=== PATIENT | female | born 1935 | race Caucasian/White ===

== ENCOUNTER 2019-10-31 15:55 | Inpatient (IN) ==
[2019-10-31 17:15] LABS: Basophils # 0.1 10*3/uL (0.0-0.2); Basophils % 0.6 % (0.0-0.8); Eosinophils # 0.4 10*3/uL (0.0-0.87); Eosinophils % 2.9 % (0.00-10.9); Hematocrit 38.9 VOL% (35.7-47.0); Immature Granulocytes % 0.4 %; Immature Granulocytes Absolute 0.05 #; Lymphocytes # 4.4 10*3/uL (1.4-4.0); Lymphocytes % 35.6 % (21.3-54.2); Mean Corpuscular HGB Conc 30.8 GM/DL (32-36); Mean Corpuscular Volume 113.1 FL (87-102); Mean Platelet Volume 9.5 FL (9.6-12.0); Monocytes % 8.1 % (1.7-12.7); NRBC # 0.09 10*3/uL; Neutrophils % 52.4 % (38.7-73.9); Platelet Count 388 T/CUMM (130-400); Red Blood Count 3.44 MC/CUMM (3.8-5.5); Red Cell Distribution Width 14.9 % (9.3-17.3); White Blood Count 12.5 T/CUMM (4-12)
[2019-10-31 17:23] LABS: Apearance,Urine CLOUDY (Clear); Bilirubin,Urine Negative (Negative); Blood, Urine Negative (Negative); Glucose,Urine (UA) Negative (Negative); Hyaline Casts,Urine 1 /LPF (0-3); Ketones,Urine Negative (Negative); Nitrite,Urine Negative (Negative); Protein,Urine Negative; RBC,Urine 1 /HPF (0-4); Squamous Epithelial Cell,Urine Occasional /HPF (0-10); Urine Color Straw (Yellow); Urine Specific Gravity 1.009 (1.001-1.035); Urine Urobilinogen < 2.0 EU/DL (0.2-1.0); WBC,Urine 8 /HPF (0-6)
[2019-10-31 17:35] LABS: Alanine Aminotransferase 32 U/L (13-56); Albumin 4.4 G/DL (3.4-5.0); Alkaline Phosphatase 108 U/L (45-117); Aspartate Amino Transferase 27 U/L (0-37); Bilirubin,Total < 0.39 MG/DL (0.2-1.0); Blood Urea Nitrogen 65 MG/DL (7-18); Calcium 9.5 MG/DL (8.5-10.1); Estimated Glom Filtration Rate 25 ML/MIN; Glucose 117 MG/DL (74-106); Osmolality,Calculated 287.2 MOS/KG (273-304); Total Protein 9.4 G/DL (6.4-8.3)
[2019-10-31] MEDS ORDERED: SODIUM CHLORIDE 0.9% 1,000 ML IV STA (17:37)
[2019-10-31 18:52] LABS: Anisocytosis 2+; Macrocytosis 2+; Polychromasia 1+
[2019-10-31 18:53] LABS: Poikilocytosis Few; Schistocytes Few
[2019-10-31 18:54] LABS: Platelet Estimate Normal
[2019-10-31] MEDS ORDERED: INSULIN REGULAR 100 UNIT/ML IV ONE (18:57)
[2019-10-31] MEDS ORDERED: DEXTROSE 50% 25 GM/50 ML VIAL IV ONE (18:58)
[2019-10-31] MEDS ORDERED: CALCIUM GLUCONATE 1,000 MG in SODIUM CHLORIDE 0.9% 100 ML IV ONE (18:59)
[2019-10-31] MEDS ORDERED: SODIUM BICARBONATE 10 MEQ/10 ML SYRINGE IV ONE (18:59)
[2019-10-31] MEDS ORDERED: SODIUM POLYSTYRENE SULFATE 15 GM/60 ML BOTTLE PO STA (19:00)
[2019-10-31 19:17] LABS: Troponin I < 0.015 NG/ML (0.00-0.045)
[2019-10-31 19:23] LABS: Thyroid Stimulating Hormone 1.67 uIU/ml (0.358-3.74)
[2019-10-31] MEDS ORDERED: hydrALAZINE 20 MG/1 ML VIAL IV PRN (19:31)
[2019-10-31] MEDS ORDERED: CALCIUM GLUCONATE 1,000 MG/10 ML VIAL IV ONE (19:34)
[2019-10-31] MEDS ORDERED: DEXTROSE 50% 25 GM/50 ML SYRINGE IV ONE (19:34)
[2019-11-01] MEDS: LEVOFLOXACIN INJ 250 MG in PREMIX 1 EACH IV SCH ×2 (00:01→21:27)
[2019-11-01] MEDS: SODIUM CHLORIDE 0.9% 1,000 ML IV SCH ×3 (00:01→16:16)
[2019-11-01] MEDS: ENOXAPARIN 30 MG/0.3 ML SYRINGE SUBCUT SCH ×2 (00:02→21:27)
[2019-11-01] MEDS: carvediloL 6.25 MG TABLET PO SCH ×3 (00:02→21:27)
[2019-11-01 06:00] LABS: Basophils # 0.1 10*3/uL (0.0-0.2); Basophils % 0.7 % (0.0-0.8); Eosinophils # 0.4 10*3/uL (0.0-0.87); Hematocrit 36.2 VOL% (35.7-47.0); Hemoglobin 11.3 GM/DL (12.0-16.0); Immature Granulocytes % 0.4 %; Immature Granulocytes Absolute 0.05 #; Lymphocytes # 5.6 10*3/uL (1.4-4.0); Lymphocytes % 40.3 % (21.3-54.2); Mean Corpuscular HGB Conc 31.2 GM/DL (32-36); Mean Corpuscular Volume 111.7 FL (87-102); Mean Platelet Volume 9.7 FL (9.6-12.0); Monocytes % 9.7 % (1.7-12.7); NRBC # 0.06 10*3/uL; Neutrophils % 45.9 % (38.7-73.9); Platelet Count 381 T/CUMM (130-400); Red Blood Count 3.24 MC/CUMM (3.8-5.5); Red Cell Distribution Width 14.7 % (9.3-17.3); White Blood Count 13.8 T/CUMM (4-12)
[2019-11-01 06:19] LABS: Troponin I < 0.015 NG/ML (0.00-0.045)
[2019-11-01 06:21] LABS: Hypochromasia 1+; Ovalocytes Slight; Platelet Estimate Adequate
[2019-11-01 06:25] LABS: Alanine Aminotransferase 26 U/L (13-56); Albumin 3.7 G/DL (3.4-5.0); Alkaline Phosphatase 107 U/L (45-117); Aspartate Amino Transferase 34 U/L (0-37); Bilirubin,Total < 0.39 MG/DL (0.2-1.0); Blood Urea Nitrogen 54 MG/DL (7-18); Calcium 9.5 MG/DL (8.5-10.1); Estimated Glom Filtration Rate 36 ML/MIN; Glucose 117 MG/DL (74-106); HDL Cholesterol 41 MG/DL (40-60); Osmolality,Calculated 288.8 MOS/KG (273-304); Risk Ratio 7.49; Total Protein 7.9 G/DL (6.4-8.3); Triglycerides 626 MG/DL (2-150); VLDL CHOLESTEROL 125.2 MG/DL
[2019-11-01] MEDS ORDERED: SODIUM POLYSTYRENE SULFATE 15 GM/60 ML BOTTLE PO STA (07:40)
[2019-11-01] MEDS: ASPIRIN EC 81 MG TABLET PO SCH (09:22)
[2019-11-01] MEDS ORDERED: SODIUM POLYSTYRENE SULFATE 15 GM/60 ML BOTTLE PO PRN (15:44)
[2019-11-01] MEDS: LACTOBACILLUS RHAMNOSUS GG CAPSULE PO SCH (21:26)
[2019-11-01] MEDS: WHEAT DEXTRIN POWDER 244 GM BOTTLE PO SCH (21:28)
[2019-11-01] MEDS: SIMVASTATIN 10 MG TABLET PO SCH (21:28)
[2019-11-01] MEDS ORDERED: ALBUTEROL 2.5 MG/3 ML NEB RESP TX PRN (22:55)
[2019-11-02] MEDS: SODIUM CHLORIDE 0.9% 1,000 ML IV SCH ×2 (05:37→13:00)
[2019-11-02] MEDS: FLUTICASONE 50 MCG NASAL SPRAY 16 GM BOTTLE BOTH NARES SCH ×3 (05:49→21:04)
[2019-11-02 08:15] LABS: Basophils # 0.1 10*3/uL (0.0-0.2); Basophils % 0.5 % (0.0-0.8); Eosinophils # 0.4 10*3/uL (0.0-0.87); Eosinophils % 2.9 % (0.00-10.9); Hematocrit 35.5 VOL% (35.7-47.0); Immature Granulocytes % 0.4 %; Immature Granulocytes Absolute 0.05 #; Lymphocytes # 5.5 10*3/uL (1.4-4.0); Lymphocytes % 40.6 % (21.3-54.2); Mean Corpuscular Volume 113.4 FL (87-102); Mean Platelet Volume 9.3 FL (9.6-12.0); Monocytes % 10.6 % (1.7-12.7); NRBC # 0.04 10*3/uL; Platelet Count 367 T/CUMM (130-400); Red Blood Count 3.13 MC/CUMM (3.8-5.5); Red Cell Distribution Width 14.9 % (9.3-17.3); White Blood Count 13.6 T/CUMM (4-12)
[2019-11-02 08:35] LABS: Platelet Estimate Normal
[2019-11-02 08:36] LABS: Anisocytosis Slight; Macrocytosis 1+; Poikilocytosis Slight
[2019-11-02 08:39] LABS: Alanine Aminotransferase 27 U/L (13-56); Albumin 3.3 G/DL (3.4-5.0); Alkaline Phosphatase 106 U/L (45-117); Aspartate Amino Transferase 23 U/L (0-37); Bilirubin,Total < 0.39 MG/DL (0.2-1.0); Blood Urea Nitrogen 33 MG/DL (7-18); Estimated Glom Filtration Rate 40 ML/MIN; Glucose 111 MG/DL (74-106); Osmolality,Calculated 282.7 MOS/KG (273-304); Total Protein 7.9 G/DL (6.4-8.3)
[2019-11-02] MEDS: carvediloL 6.25 MG TABLET PO SCH ×2 (09:25→21:00)
[2019-11-02] MEDS: ASPIRIN EC 81 MG TABLET PO SCH (09:25)
[2019-11-02] MEDS: LACTOBACILLUS RHAMNOSUS GG CAPSULE PO SCH ×2 (09:25→21:03)
[2019-11-02] MEDS: WHEAT DEXTRIN POWDER 244 GM BOTTLE PO SCH ×3 (09:27→21:02)
[2019-11-02 10:19] LABS: Folate 16.3 NG/ML (5.4-24.0)
[2019-11-02] MEDS: SIMVASTATIN 10 MG TABLET PO SCH (21:03)
[2019-11-02] MEDS: LEVOFLOXACIN INJ 250 MG in PREMIX 1 EACH IV SCH (21:05)
[2019-11-02] MEDS: ENOXAPARIN 30 MG/0.3 ML SYRINGE SUBCUT SCH (21:11)
[2019-11-03] MEDS: VANCOMYCIN 50 MG/ML 60 ML/BOTTLE PO SCH ×4 (00:39→18:04)
[2019-11-03 06:20] LABS: Basophils # 0.1 10*3/uL (0.0-0.2); Basophils % 0.5 % (0.0-0.8); Eosinophils # 0.4 10*3/uL (0.0-0.87); Eosinophils % 3.2 % (0.00-10.9); Hematocrit 31.1 VOL% (35.7-47.0); Hemoglobin 9.8 GM/DL (12.0-16.0); Immature Granulocytes % 0.3 %; Immature Granulocytes Absolute 0.04 #; Lymphocytes # 4.9 10*3/uL (1.4-4.0); Lymphocytes % 39.9 % (21.3-54.2); Mean Corpuscular HGB Conc 31.5 GM/DL (32-36); Mean Corpuscular Volume 111.9 FL (87-102); Mean Platelet Volume 9.8 FL (9.6-12.0); Monocytes % 11.9 % (1.7-12.7); NRBC # 0.04 10*3/uL; Neutrophils % 44.2 % (38.7-73.9); Platelet Count 326 T/CUMM (130-400); Red Blood Count 2.78 MC/CUMM (3.8-5.5); Red Cell Distribution Width 14.4 % (9.3-17.3); White Blood Count 12.2 T/CUMM (4-12)
[2019-11-03 06:43] LABS: Albumin 3.1 G/DL (3.4-5.0); Bilirubin,Total 0.6 MG/DL (0.2-1.0); Calcium 8.7 MG/DL (8.5-10.1); Osmolality,Calculated 280.5 MOS/KG (273-304)
[2019-11-03] MEDS: ASPIRIN EC 81 MG TABLET PO SCH (11:02)
[2019-11-03] MEDS: carvediloL 6.25 MG TABLET PO SCH ×2 (11:03→20:37)
[2019-11-03] MEDS: WHEAT DEXTRIN POWDER 244 GM BOTTLE PO SCH ×3 (11:03→20:37)
[2019-11-03] MEDS: TORSEMIDE 20 MG TABLET PO SCH (11:04)
[2019-11-03] MEDS: LACTOBACILLUS RHAMNOSUS GG CAPSULE PO SCH ×2 (11:04→20:37)
[2019-11-03] MEDS: FLUTICASONE 50 MCG NASAL SPRAY 16 GM BOTTLE BOTH NARES SCH ×2 (11:05→20:38)
[2019-11-03] MEDS: SIMVASTATIN 10 MG TABLET PO SCH (20:38)
[2019-11-03] MEDS: ENOXAPARIN 30 MG/0.3 ML SYRINGE SUBCUT SCH (20:38)
[2019-11-04] MEDS: VANCOMYCIN 50 MG/ML 60 ML/BOTTLE PO SCH ×4 (00:30→17:34)
[2019-11-04 06:24] LABS: Basophils # 0.1 10*3/uL (0.0-0.2); Basophils % 0.6 % (0.0-0.8); Eosinophils # 0.4 10*3/uL (0.0-0.87); Eosinophils % 3.7 % (0.00-10.9); Hematocrit 30.3 VOL% (35.7-47.0); Hemoglobin 9.8 GM/DL (12.0-16.0); Immature Granulocytes % 0.3 %; Immature Granulocytes Absolute 0.03 #; Lymphocytes # 5.3 10*3/uL (1.4-4.0); Lymphocytes % 47.2 % (21.3-54.2); Mean Corpuscular HGB Conc 32.3 GM/DL (32-36); NRBC # 0.05 10*3/uL; Neutrophils % 35.2 % (38.7-73.9); Platelet Count 338 T/CUMM (130-400); Red Blood Count 2.78 MC/CUMM (3.8-5.5); Red Cell Distribution Width 14.6 % (9.3-17.3); White Blood Count 11.2 T/CUMM (4-12)
[2019-11-04 06:49] LABS: Eosinophils 4 % (0-10); Hypochromasia 1+; Lymphocytes 45 % (20-55); Nucleated Red Blood Cells 1 (0-5); Platelet Estimate Adequate; Segmented Neutrophils 41 % (50-85); Total Cells Counted 100
[2019-11-04 07:04] LABS: Albumin 3.2 G/DL (3.4-5.0); Bilirubin,Total 0.4 MG/DL (0.2-1.0); Calcium 8.6 MG/DL (8.5-10.1); Osmolality,Calculated 281.5 MOS/KG (273-304)
[2019-11-04] MEDS: LACTOBACILLUS RHAMNOSUS GG CAPSULE PO SCH ×2 (10:54→21:59)
[2019-11-04] MEDS: TORSEMIDE 20 MG TABLET PO SCH (10:54)
[2019-11-04] MEDS: ASPIRIN EC 81 MG TABLET PO SCH (10:54)
[2019-11-04] MEDS: carvediloL 6.25 MG TABLET PO SCH ×2 (10:54→21:59)
[2019-11-04] MEDS: WHEAT DEXTRIN POWDER 244 GM BOTTLE PO SCH ×3 (10:54→21:59)
[2019-11-04] MEDS: FLUTICASONE 50 MCG NASAL SPRAY 16 GM BOTTLE BOTH NARES SCH (10:55)
[2019-11-04] MEDS: ENOXAPARIN 30 MG/0.3 ML SYRINGE SUBCUT SCH (21:59)
[2019-11-04] MEDS: SIMVASTATIN 10 MG TABLET PO SCH (21:59)
[2019-11-05] MEDS: FLUTICASONE 50 MCG NASAL SPRAY 16 GM BOTTLE BOTH NARES SCH ×3 (00:06→20:57)
[2019-11-05] MEDS: VANCOMYCIN 50 MG/ML 60 ML/BOTTLE PO SCH ×4 (00:06→18:29)
[2019-11-05] MEDS: LACTATED RINGERS 1,000 ML IV SCH ×2 (03:17→06:15)
[2019-11-05 06:35] LABS: Basophils # 0.1 10*3/uL (0.0-0.2); Basophils % 0.5 % (0.0-0.8); Eosinophils # 0.4 10*3/uL (0.0-0.87); Eosinophils % 2.9 % (0.00-10.9); Hematocrit 30.9 VOL% (35.7-47.0); Hemoglobin 10.1 GM/DL (12.0-16.0); Immature Granulocytes % 0.3 %; Immature Granulocytes Absolute 0.05 #; Lymphocytes # 5.6 10*3/uL (1.4-4.0); Lymphocytes % 37.4 % (21.3-54.2); Mean Corpuscular HGB Conc 32.7 GM/DL (32-36); Mean Corpuscular Volume 108.8 FL (87-102); Mean Platelet Volume 9.6 FL (9.6-12.0); Monocytes % 11.9 % (1.7-12.7); NRBC # 0.02 10*3/uL; Platelet Count 333 T/CUMM (130-400); Red Blood Count 2.84 MC/CUMM (3.8-5.5); Red Cell Distribution Width 14.6 % (9.3-17.3)
[2019-11-05 06:58] LABS: Alanine Aminotransferase 20 U/L (13-56); Albumin 3.1 G/DL (3.4-5.0); Alkaline Phosphatase 82 U/L (45-117); Aspartate Amino Transferase 18 U/L (0-37); Bilirubin,Total < 0.39 MG/DL (0.2-1.0); Blood Urea Nitrogen 32 MG/DL (7-18); Calcium 8.6 MG/DL (8.5-10.1); Estimated Glom Filtration Rate 32 ML/MIN; Glucose 106 MG/DL (74-106); Osmolality,Calculated 283.5 MOS/KG (273-304); Total Protein 7.1 G/DL (6.4-8.3)
[2019-11-05] MEDS: LACTOBACILLUS RHAMNOSUS GG CAPSULE PO SCH ×2 (10:48→20:56)
[2019-11-05] MEDS: ASPIRIN EC 81 MG TABLET PO SCH (10:48)
[2019-11-05] MEDS: carvediloL 6.25 MG TABLET PO SCH ×2 (10:49→20:56)
[2019-11-05] MEDS: TORSEMIDE 20 MG TABLET PO SCH (10:49)
[2019-11-05] MEDS: allopurinoL 300 MG TABLET PO SCH (10:50)
[2019-11-05] MEDS: OLMESARTAN 20 MG TABLET PO SCH (10:50)
[2019-11-05] MEDS: WHEAT DEXTRIN POWDER 244 GM BOTTLE PO SCH ×3 (10:51→22:54)
[2019-11-05] MEDS ORDERED: SODIUM CHLORIDE 0.9% 1,000 ML IV SCH (15:30)
[2019-11-05] MEDS: SIMVASTATIN 10 MG TABLET PO SCH (20:56)
[2019-11-05] MEDS: ENOXAPARIN 30 MG/0.3 ML SYRINGE SUBCUT SCH (20:56)
[2019-11-06] MEDS: VANCOMYCIN 50 MG/ML 60 ML/BOTTLE PO SCH ×3 (00:05→12:19)
[2019-11-06 05:29] LABS: Basophils # 0.1 10*3/uL (0.0-0.2); Basophils % 0.4 % (0.0-0.8); Eosinophils # 0.4 10*3/uL (0.0-0.87); Hematocrit 29.9 VOL% (35.7-47.0); Hemoglobin 9.5 GM/DL (12.0-16.0); Immature Granulocytes % 0.4 %; Immature Granulocytes Absolute 0.05 #; Lymphocytes # 5.2 10*3/uL (1.4-4.0); Lymphocytes % 37.9 % (21.3-54.2); Mean Corpuscular HGB Conc 31.8 GM/DL (32-36); Mean Corpuscular Volume 109.9 FL (87-102); Mean Platelet Volume 9.8 FL (9.6-12.0); Monocytes % 12.4 % (1.7-12.7); NRBC # 0.02 10*3/uL; Neutrophils % 45.9 % (38.7-73.9); Platelet Count 354 T/CUMM (130-400); Red Blood Count 2.72 MC/CUMM (3.8-5.5); Red Cell Distribution Width 14.5 % (9.3-17.3); White Blood Count 13.7 T/CUMM (4-12)
[2019-11-06] MEDS: LACTOBACILLUS RHAMNOSUS GG CAPSULE PO SCH ×2 (08:37→21:49)
[2019-11-06] MEDS: carvediloL 6.25 MG TABLET PO SCH ×2 (08:38→21:49)
[2019-11-06] MEDS: ASPIRIN EC 81 MG TABLET PO SCH (08:38)
[2019-11-06] MEDS: allopurinoL 300 MG TABLET PO SCH (08:38)
[2019-11-06] MEDS: FLUTICASONE 50 MCG NASAL SPRAY 16 GM BOTTLE BOTH NARES SCH ×2 (08:38→21:50)
[2019-11-06] MEDS: WHEAT DEXTRIN POWDER 244 GM BOTTLE PO SCH ×4 (08:39→21:53)
[2019-11-06 10:13] LABS: Apearance,Urine CLEAR (Clear); Bilirubin,Urine Negative (Negative); Blood, Urine Negative (Negative); Glucose,Urine (UA) Negative (Negative); Ketones,Urine Negative (Negative); Nitrite,Urine Negative (Negative); Protein,Urine Negative; RBC,Urine <1 /HPF (0-4); Squamous Epithelial Cell,Urine Occasional /HPF (0-10); Urine Color Straw (Yellow); Urine Specific Gravity 1.008 (1.001-1.035); Urine Urobilinogen < 2.0 EU/DL (0.2-1.0); WBC,Urine 2 /HPF (0-6)
[2019-11-06 12:31] LABS: Calcium 8.7 MG/DL (8.5-10.1); Osmolality,Calculated 285.5 MOS/KG (273-304)
[2019-11-06] MEDS: ENOXAPARIN 30 MG/0.3 ML SYRINGE SUBCUT SCH (21:49)
[2019-11-06] MEDS: SIMVASTATIN 10 MG TABLET PO SCH (21:49)
[2019-11-07] MEDS: VANCOMYCIN 50 MG/ML 60 ML/BOTTLE PO SCH ×5 (00:01→18:10)
[2019-11-07 06:48] LABS: Basophils # 0.1 10*3/uL (0.0-0.2); Basophils % 0.4 % (0.0-0.8); Eosinophils # 0.5 10*3/uL (0.0-0.87); Eosinophils % 3.2 % (0.00-10.9); Hematocrit 30.7 VOL% (35.7-47.0); Hemoglobin 9.5 GM/DL (12.0-16.0); Immature Granulocytes % 0.4 %; Immature Granulocytes Absolute 0.06 #; Lymphocytes # 5.1 10*3/uL (1.4-4.0); Mean Corpuscular HGB Conc 30.9 GM/DL (32-36); Mean Corpuscular Volume 112.5 FL (87-102); Monocytes % 12.8 % (1.7-12.7); NRBC # 0.03 10*3/uL; Neutrophils % 46.2 % (38.7-73.9); Platelet Count 355 T/CUMM (130-400); Red Blood Count 2.73 MC/CUMM (3.8-5.5); Red Cell Distribution Width 14.9 % (9.3-17.3); White Blood Count 13.9 T/CUMM (4-12)
[2019-11-07 07:12] LABS: Anisocytosis 1+; Platelet Estimate Normal
[2019-11-07 07:13] LABS: Macrocytosis Slight
[2019-11-07 08:28] LABS: Calcium 8.7 MG/DL (8.5-10.1); Osmolality,Calculated 284.5 MOS/KG (273-304)
[2019-11-07] MEDS: OLMESARTAN 20 MG TABLET PO SCH (09:27)
[2019-11-07] MEDS: allopurinoL 300 MG TABLET PO SCH (09:28)
[2019-11-07] MEDS: FLUTICASONE 50 MCG NASAL SPRAY 16 GM BOTTLE BOTH NARES SCH ×2 (09:28→21:27)
[2019-11-07] MEDS: LACTOBACILLUS RHAMNOSUS GG CAPSULE PO SCH ×2 (09:28→21:26)
[2019-11-07] MEDS: carvediloL 6.25 MG TABLET PO SCH ×2 (09:28→21:26)
[2019-11-07] MEDS: ASPIRIN EC 81 MG TABLET PO SCH (09:28)
[2019-11-07] MEDS: WHEAT DEXTRIN POWDER 244 GM BOTTLE PO SCH ×3 (09:29→21:56)
[2019-11-07] MEDS ORDERED: TUBERCULIN SKIN TEST 0.1 ML SYRINGE INTRADERM ONE (11:20)
[2019-11-07] MEDS: ENOXAPARIN 30 MG/0.3 ML SYRINGE SUBCUT SCH (21:26)
[2019-11-07] MEDS: SIMVASTATIN 10 MG TABLET PO SCH (21:28)
[2019-11-08] MEDS: VANCOMYCIN 50 MG/ML 60 ML/BOTTLE PO SCH ×2 (00:03→05:48)
[2019-11-08 06:07] LABS: Basophils # 0.1 10*3/uL (0.0-0.2); Basophils % 0.4 % (0.0-0.8); Eosinophils # 0.4 10*3/uL (0.0-0.87); Eosinophils % 2.6 % (0.00-10.9); Hematocrit 28.7 VOL% (35.7-47.0); Hemoglobin 9.3 GM/DL (12.0-16.0); Immature Granulocytes % 0.4 %; Immature Granulocytes Absolute 0.05 #; Lymphocytes # 4.5 10*3/uL (1.4-4.0); Lymphocytes % 33.2 % (21.3-54.2); Mean Corpuscular HGB Conc 32.4 GM/DL (32-36); Mean Corpuscular Volume 109.1 FL (87-102); Mean Platelet Volume 9.8 FL (9.6-12.0); Monocytes % 13.8 % (1.7-12.7); NRBC # 0.04 10*3/uL; Neutrophils % 49.6 % (38.7-73.9); Platelet Count 340 T/CUMM (130-400); Red Blood Count 2.63 MC/CUMM (3.8-5.5); Red Cell Distribution Width 14.6 % (9.3-17.3); White Blood Count 13.7 T/CUMM (4-12)
[2019-11-08 06:22] LABS: Calcium 8.7 MG/DL (8.5-10.1); Osmolality,Calculated 283.5 MOS/KG (273-304)
[2019-11-08] MEDS: allopurinoL 300 MG TABLET PO SCH (10:26)
[2019-11-08] MEDS: ASPIRIN EC 81 MG TABLET PO SCH (10:26)
[2019-11-08] MEDS: OLMESARTAN 20 MG TABLET PO SCH (10:26)
[2019-11-08] MEDS: LACTOBACILLUS RHAMNOSUS GG CAPSULE PO SCH (10:26)
[2019-11-08] MEDS: carvediloL 6.25 MG TABLET PO SCH (10:26)
[2019-11-08] MEDS: WHEAT DEXTRIN POWDER 244 GM BOTTLE PO SCH (10:33)
[2019-11-08] MEDS: FLUTICASONE 50 MCG NASAL SPRAY 16 GM BOTTLE BOTH NARES SCH (10:33)
[2019-11-08 12:30] VITALS: BP 125/60
[2019-11-08 14:21] LABS: IgA Serum (MAYO) 386 mg/dL (61 - 356)
== END 2019-11-08 16:03 | disposition swing bed (61) | DRG 372 ==
LOC: EDBD → MERGE 15:55 → N.ED 15:55 → N.EDINP 18:53 → SUATTDRO 18:53 → N.5E 19:16
PROVIDERS: ADMIT Internal Medicine; ATTEND Emergency Medicine

== ENCOUNTER 2020-04-28 23:38 | Observation (INO) ==
[2020-04-28] MEDS ORDERED: ASPIRIN 325 MG TABLET PO STA (23:55)
[2020-04-28] MEDS ORDERED: ALBUTEROL/IPRATROPIUM 3 ML NEB RESP TX STA (23:55)
[2020-04-28] MEDS ORDERED: NITROGLYCERIN 2% OINT 1 INCH/GM PACK TOP STA (23:56)
[2020-04-29 00:38] LABS: Basophils # 0.1 10*3/uL (0.0-0.2); Basophils % 0.4 % (0.0-0.8); Eosinophils # 0.2 10*3/uL (0.0-0.87); Eosinophils % 1.5 % (0.00-10.9); Hematocrit 29.2 VOL% (35.7-47.0); Hemoglobin 9.4 GM/DL (12.0-16.0); Immature Granulocytes % 0.5 %; Immature Granulocytes Absolute 0.07 #; Lymphocytes # 3.6 10*3/uL (1.4-4.0); Lymphocytes % 25.7 % (21.3-54.2); Mean Corpuscular HGB Conc 32.2 GM/DL (32-36); Mean Corpuscular Volume 100.7 FL (87-102); Mean Platelet Volume 9.6 FL (9.6-12.0); Monocytes % 11.9 % (1.7-12.7); NRBC # 0.02 10*3/uL; Platelet Count 438 T/CUMM (130-400); Red Cell Distribution Width 17.2 % (9.3-17.3); White Blood Count 13.9 T/CUMM (4-12)
[2020-04-29 00:59] LABS: Alanine Aminotransferase 18 U/L (13-56); Albumin 2.8 G/DL (3.4-5.0); Alkaline Phosphatase 93 U/L (45-117); Aspartate Amino Transferase 20 U/L (0-37); Bilirubin,Total < 0.39 MG/DL (0.2-1.0); Blood Urea Nitrogen 17 MG/DL (7-18); Calcium 8.4 MG/DL (8.5-10.1); Estimated Glom Filtration Rate 40 ML/MIN; Glucose 189 MG/DL (74-106); Osmolality,Calculated 287.3 MOS/KG (273-304); Total Protein 7.6 G/DL (6.4-8.3)
[2020-04-29] MEDS ORDERED: hydrALAZINE 20 MG/1 ML VIAL IV STA (01:00)
[2020-04-29 01:01] LABS: Troponin I < 0.015 NG/ML (0.00-0.045)
[2020-04-29 01:09] LABS: Apearance,Urine CLOUDY (Clear); Bacteria,Urine Few /HPF (Few); Bilirubin,Urine Negative (Negative); Blood, Urine Negative (Negative); Glucose,Urine (UA) Negative (Negative); Ketones,Urine Negative (Negative); Nitrite,Urine Negative (Negative); Protein,Urine 100 MG/DL; RBC,Urine 2 /HPF (0-4); Squamous Epithelial Cell,Urine Occasional /HPF (0-10); Urine Color Yellow (Yellow); Urine Specific Gravity 1.004 (1.001-1.035); Urine Urobilinogen < 2.0 EU/DL (0.2-1.0); WBC,Urine 38 /HPF (0-6)
[2020-04-29] MEDS ORDERED: ALBUTEROL 2.5 MG/3 ML NEB RESP TX STA (01:13)
[2020-04-29] MEDS ORDERED: LEVOFLOXACIN INJ 750 MG in PREMIX 1 EACH IV STA (01:14)
[2020-04-29] MEDS ORDERED: DEXAMETHASONE 10 MG/1 ML VIAL IV STA (01:15)
[2020-04-29] MEDS ORDERED: DEXTROSE 50% 25 GM/50 ML VIAL IV PRN (02:28)
[2020-04-29] MEDS ORDERED: diphenhydrAMINE CAP 25 MG CAPSULE PO PRN (02:28)
[2020-04-29] MEDS ORDERED: GLUCAGON 1 MG VIAL IM PRN (02:28)
[2020-04-29] MEDS ORDERED: ACETAMINOPHEN 325 MG TABLET PO PRN (02:28)
[2020-04-29] MEDS ORDERED: NICOTINE 21 MG/24 HR PATCH TRANSDERM PRN (02:28)
[2020-04-29] MEDS ORDERED: guaiFENesin/DM ER 600-30 MG TABLET PO PRN (02:28)
[2020-04-29] MEDS ORDERED: hydrALAZINE 20 MG/1 ML VIAL IV PRN (02:28)
[2020-04-29] MEDS ORDERED: ONDANSETRON 4 MG/2 ML VIAL IV PRN (02:28)
[2020-04-29] MEDS: ALBUTEROL/IPRATROPIUM 3 ML NEB RESP TX SCH ×5 (03:22→20:10)
[2020-04-29] MEDS ORDERED: FUROSEMIDE 40 MG/4 ML VIAL IV STA (03:35)
[2020-04-29] MEDS ORDERED: DEXAMETHASONE 10 MG/1 ML VIAL IV SCH (09:00)
[2020-04-29] MEDS: POTASSIUM CHLORIDE 20 MEQ TABLET PO PRN (10:05)
[2020-04-29] MEDS: FUROSEMIDE 40 MG/4 ML VIAL IV SCH (17:54)
[2020-04-30] MEDS: ALBUTEROL/IPRATROPIUM 3 ML NEB RESP TX SCH ×6 (00:15→18:55)
[2020-04-30 08:12] LABS: Basophils % 0.1 % (0.0-0.8); Hematocrit 28.6 VOL% (35.7-47.0); Hemoglobin 9.3 GM/DL (12.0-16.0); Immature Granulocytes % 0.8 %; Immature Granulocytes Absolute 0.13 #; Lymphocytes # 2.2 10*3/uL (1.4-4.0); Lymphocytes % 13.7 % (21.3-54.2); Mean Corpuscular HGB Conc 32.5 GM/DL (32-36); Mean Corpuscular Volume 99.7 FL (87-102); Mean Platelet Volume 9.6 FL (9.6-12.0); Monocytes % 8.2 % (1.7-12.7); NRBC # 0.03 10*3/uL; Neutrophils % 77.2 % (38.7-73.9); Platelet Count 465 T/CUMM (130-400); Red Blood Count 2.87 MC/CUMM (3.8-5.5); Red Cell Distribution Width 17.1 % (9.3-17.3); White Blood Count 16.2 T/CUMM (4-12)
[2020-04-30 08:36] LABS: Calcium 8.1 MG/DL (8.5-10.1)
[2020-04-30] MEDS: FUROSEMIDE 40 MG/4 ML VIAL IV SCH (08:36)
[2020-04-30] MEDS ORDERED: FLUTICASONE 50 MCG NASAL SPRAY 16 GM BOTTLE BOTH NARES PRN (09:41)
[2020-04-30] MEDS: ASPIRIN EC 81 MG TABLET PO SCH (09:58)
[2020-04-30] MEDS: carvediloL 6.25 MG TABLET PO SCH ×2 (09:58→22:52)
[2020-04-30] MEDS: SIMVASTATIN 10 MG TABLET PO SCH (10:01)
[2020-04-30] MEDS: POTASSIUM CHLORIDE 20 MEQ TABLET PO PRN ×3 (10:02→17:54)
[2020-04-30] MEDS ORDERED: ALUMINUM/MAGNES/SIMETH MAX STR 30 ML UDCUP PO PRN (14:30)
[2020-04-30] MEDS: PHENOL 1.4% THROAT SPRAY 177 ML BOTTLE PO PRN ×2 (16:15→22:52)
[2020-04-30] MEDS ORDERED: ENOXAPARIN 30 MG/0.3 ML SYRINGE SUBCUT SCH (18:00)
[2020-05-01] MEDS: ALBUTEROL/IPRATROPIUM 3 ML NEB RESP TX SCH ×4 (01:13→11:51)
[2020-05-01] MEDS ORDERED: LEVOFLOXACIN INJ 750 MG in PREMIX 1 EACH IV SCH (06:00)
[2020-05-01] MEDS: PHENOL 1.4% THROAT SPRAY 177 ML BOTTLE PO PRN (08:21)
[2020-05-01] MEDS: POTASSIUM CHLORIDE 20 MEQ TABLET PO PRN (08:22)
[2020-05-01] MEDS: ASPIRIN EC 81 MG TABLET PO SCH (08:23)
[2020-05-01] MEDS: SIMVASTATIN 10 MG TABLET PO SCH (08:23)
[2020-05-01] MEDS: carvediloL 6.25 MG TABLET PO SCH (08:23)
[2020-05-01] MEDS ORDERED: ALUM/MAG/SIMETH/LIDO VISC 1:1 30 ML BOTTLE PO ONE (08:26)
[2020-05-01 08:38] LABS: Basophils % 0.2 % (0.0-0.8); Eosinophils # 0.2 10*3/uL (0.0-0.87); Eosinophils % 1.1 % (0.00-10.9); Hematocrit 33.3 VOL% (35.7-47.0); Hemoglobin 10.5 GM/DL (12.0-16.0); Immature Granulocytes % 0.7 %; Immature Granulocytes Absolute 0.12 #; Lymphocytes # 3.8 10*3/uL (1.4-4.0); Lymphocytes % 22.8 % (21.3-54.2); Mean Corpuscular HGB Conc 31.5 GM/DL (32-36); Mean Corpuscular Volume 101.8 FL (87-102); Mean Platelet Volume 9.8 FL (9.6-12.0); Monocytes % 9.4 % (1.7-12.7); NRBC # 0.04 10*3/uL; Neutrophils % 65.8 % (38.7-73.9); Platelet Count 530 T/CUMM (130-400); Red Blood Count 3.27 MC/CUMM (3.8-5.5); Red Cell Distribution Width 17.3 % (9.3-17.3); White Blood Count 16.6 T/CUMM (4-12)
[2020-05-01 08:55] LABS: Calcium 8.3 MG/DL (8.5-10.1); Osmolality,Calculated 285.7 MOS/KG (273-304)
[2020-05-01] MEDS ORDERED: MAGNESIUM CHLORIDE 64 MG TABLET PO SCH (09:00)
[2020-05-01] MEDS ORDERED: allopurinoL 300 MG TABLET PO SCH (09:00)
[2020-05-01] MEDS ORDERED: FUROSEMIDE 40 MG/4 ML VIAL IV SCH (09:00)
[2020-05-01 09:23] LABS: Eosinophils 3 % (0-10); Hypochromasia 1+; Lymphocytes 25 % (20-55); Microcytosis Slight; Platelet Estimate Adequate; Segmented Neutrophils 71 % (50-85); Total Cells Counted 100
[2020-05-01 11:48] VITALS: BP 127/73
[2020-05-02] MEDS ORDERED: SIMVASTATIN 10 MG TABLET PO SCH (21:00)
== END 2020-05-01 15:47 | disposition home health service (06) ==
LOC: N.EDINP 23:38 → N.ED 23:38 → SUATTDRO 04-29 02:28 → N.TELEN 04-29 03:36
PROVIDERS: ADMIT Internal Medicine; ATTEND Emergency Medicine